=== PATIENT | male | born 1980 ===

== ENCOUNTER 2017-08-25 07:21 | Emergency (ER) | payer OTHER ==
--- NOTE | 2017-08-25 08:56 | ED PDOC ---
HPI: General Adult Time Seen by Provider: 08/25/17 07:31 Chief Complaint (Nursing): Fever Chief Complaint (Provider): Fever History Per: Patient History/Exam Limitations: no limitations Onset/Duration Of Symptoms: Days (x 4) Current Symptoms Are (Timing): Still Present Additional Complaint(s): 37 year old male presents to the ED with throat pain and fever. Patient reports that throat pain has been present for the last 4 days and fever present for the last 3 days accompanied with mild diarrhea. He took Tylenol and Motrin at home with some relief. He denies abdominal pain. PMD: none provided Past Medical History Reviewed: Historical Data, Nursing Documentation, Vital Signs Vital Signs: Last Vital Signs Temp 97 F L 08/25/17 10:08 Pulse 78 08/25/17 10:08 Resp 19 08/25/17 10:08 BP 120/76 08/25/17 10:08 Pulse Ox 98 08/25/17 10:08 - Medical History PMH: No Chronic Diseases - Surgical History Surgical History: Appendectomy - Family History Family History: States: Unknown Family Hx - Social History Current smoker - smoking cessation education provided: Yes (Light Smoker) Alcohol: Social Drugs: Denies - Home Medications Home Medications: Ambulatory Orders Medication Instructions Recorded Ibuprofen [Motrin] 600 mg PO Q6H PRN #20 tab 08/25/17 - Allergies Allergies/Adverse Reactions: Allergies Allergy/AdvReac Type Severity Reaction Status Date / Time No Known Allergies Allergy Verified 08/25/17 08:24 Review of Systems ROS Statement: Except As Marked, All Systems Reviewed And Found Negative Constitutional: Positive for: Fever ENT: Positive for: Throat Pain Physical Exam - Reviewed Nursing Documentation Reviewed: Yes Vital Signs Reviewed: Yes - Physical Exam Appears: Positive for: Non-toxic, No Acute Distress Head Exam: Positive for: ATRAUMATIC, NORMAL INSPECTION, NORMOCEPHALIC Skin: Positive for: Normal Color, Warm, Dry Eye Exam: Positive for: EOMI, Normal appearance, PERRL ENT: Positive for: Tonsillar Swelling (and erythema bilaterally). Negative for : Tonsillar Exudate Neck: Positive for: Normal, Painless ROM Cardiovascular/Chest: Positive for: Regular Rate, Rhythm. Negative for: Murmur Respiratory: Positive for: Normal Breath Sounds. Negative for: Respiratory Distress Gastrointestinal/Abdominal: Positive for: Normal Exam, Soft. Negative for: Tenderness Neurologic/Psych: Positive for: Alert, Oriented ( x 3). Negative for: Motor/ Sensory Deficits - ECG O2 Sat by Pulse Oximetry: 99 (RA) Pulse Ox Interpretation: Normal Medical Decision Making Medical Decision Making: Time: 08:24 Initial Plan: sore throat rule out strep --Toradol 60 mg IM --Rapid strep --Throat cx Strep test is negative. Patient is stable and feels better and will be discharged home. Diagnosis is viral illness. Return to the ED if symptoms persist or worsen. Follow up with PMD in 1-2 days. Scribe Attestation: Documented by Darlene Chou, acting as a scribe for Jere Silva MD Provider Scribe Attestation: All medical record entries made by the Scribe were at my direction and personally dictated by me. I have reviewed the chart and agree that the record accurately reflects my personal performance of the history, physical exam, medical decision making, and the department course for this patient. I have also personally directed, reviewed, and agree with the discharge instructions and disposition. Disposition - Clinical Impression Clinical Impression: Viral illness - Patient ED Disposition Is Patient to be Admitted: No Counseled Patient/Family Regarding: Studies Performed, Diagnosis, Need For Followup - Disposition Referrals: [facility] [Outside] [facility] [Outside] Disposition: Routine/Home Disposition Time: 09:00 Condition: IMPROVED Additional Instructions: follow up with your primary doctor in 1-2 days return to the ED with any worsening or concerning symptoms Prescriptions: Ibuprofen [Motrin] 600 mg PO Q6H PRN #20 tab PRN Reason: Pain, Moderate (4-7) Instructions: Sore Throat, Adult (DC) Forms: [employer] (Armenian) Print Language: SAMMARINESE
[2017-08-25 10:08] VITALS: BP 120/76; PULSE 78; RESP 19; TEMP 97
[2017-08-27 03:35] VITALS: O2SAT 99
== END 2017-08-25 10:16 | disposition home or self-care (01) ==
LOC: H.ER 07:21
DX: B34.9 Viral infection, unspecified (principal)
CPT/HCPCS: 87070; 87430; 96372; 99283; J1885